=== PATIENT | male | born 1975 | race Caucasian/White ===

== ENCOUNTER 2022-03-05 10:55 | Emergency (ER) | payer OTHER ==
[~2022-03-05] VITALS: Ht 170.2 cm; Wt 72.6 kg
[2022-03-05 11:18] VITALS: BP_SYST 119
--- NOTE | 2022-03-05 11:20 | NUR ---
PT CAME FROM HOME WITH CC OF RIGHT EYE PRESSURE, IRRITATED, STATES ONCE A YEAR THIS HAPPENS. PT IS STABLE, NAD, VSS, AAOx3, TO BE FURTHER ASSESSED BY ED MD FOR PLAN OF CARE WITH DISPOSITION.
--- NOTE | 2022-03-05 13:08 | NUR ---
Dr Iverson at bedside evaluating and irrigating patient's eye.
[2022-03-05] MEDS ORDERED: ERYTHROMYCIN 0.5% EYE OINT 3.5 GM OP ONE (14:00)
[2022-03-05] MEDS ORDERED: HYDR-3917 PO (14:04)
[2022-03-05] MEDS ORDERED: IBUP-1969 PO (14:04)
[2022-03-05] MEDS ORDERED: ERYEYE RIGHT EYE (14:04)
--- NOTE | 2022-03-05 14:23 | NUR ---
Patient given written and verbal discharge instructions and verbalizes understanding. ER MD discussed with patient the results and treatment provided. Patient in stable condition.
== END 2022-03-05 14:23 | disposition home or self-care (01) ==
LOC: SED 10:55
DX: T15.01XA Foreign body in cornea, right eye, initial encounter (principal); H16.0 Corneal ulcer
CPT/HCPCS: 99283; 99284